=== PATIENT | female | born 1985 | race Two or more races ===

== ENCOUNTER 2020-10-13 10:45 | Inpatient (IN) | payer OTHER ==
[~2020-10-13] VITALS: Ht 172.7 cm; Wt 77.1 kg
[2020-10-13] MEDS ORDERED: ZYRTEC10 M3 PO (13:52)
[2020-10-21] MEDS ORDERED: NAPR500T14 PO (08:58)
[2020-10-21] MEDS ORDERED: Tylenol #3 PO (08:58)
== END 2020-10-21 09:37 | disposition home or self-care (01) | DRG 743 ==
LOC: O/R 10-20 06:00 → OB/GYN 10-20 06:00
PROVIDERS: ADMIT Obstetrics & Gynecology; ATTEND Obstetrics & Gynecology
PROC: 0UQF7ZZ Repair Cul-de-sac, Via Natural or Artificial Opening (ICD-10-PCS; 2020-10-20)
PROC: 0USG7ZZ Reposition Vagina, Via Natural or Artificial Opening (ICD-10-PCS; 2020-10-20)
PROC: 0TJB8ZZ Inspection of Bladder, Via Natural or Artificial Opening Endoscopic (ICD-10-PCS; 2020-10-20)
PROC: 0UT97ZZ Resection of Uterus, Via Natural or Artificial Opening (ICD-10-PCS; principal; 2020-10-20 10:15)
DX: N94.5 Secondary dysmenorrhea (principal); N72 Inflammatory disease of cervix uteri; D26.1 Other benign neoplasm of corpus uteri; N81.11 Cystocele, midline; N92.4 Excessive bleeding in the premenopausal period